=== PATIENT | male | born 1965 | race Caucasian/White ===

== ENCOUNTER 2019-04-13 11:12 | Outpatient (REF) | payer OTHER, SELFPAY ==
[2019-04-13 21:44] LABS: ALT 52 U/L (16-63); AST 21 U/L (15-37); Albumin 4.4 g/dL (3.4-5.0); Alkaline Phosphatase 52 U/L (46-116); Bilirubin, Total 0.4 mg/dL (0.2-1.0); Calculated LDL 207 mg/dL; Cholesterol 278 mg/dL (<200); HDL Cholesterol 39 mg/dL (40-60); TSH 2.28 uIU/mL (0.36-3.74); Total Protein 7.4 g/dL (6.4-8.2); Triglyceride 161 mg/dL (<150)
[2019-04-13 22:23] LABS: Bilirubin, Direct 0.07 mg/dL (0.00-0.20)
[2019-04-15 12:07] LABS: Hepatitis C Ab w Rflx HCV PCR Reactive (Negative)
[2019-04-16 14:48] LABS: HCV RNA Detection Quantitative 0 IU/mL (Undetected)
== END 2019-04-13 11:32 ==
LOC: NCHCN 11:12
PROVIDERS: PCP Internal Medicine; Visit Provider Nurse Practitioner Family
DX: B19.20 Unspecified viral hepatitis C without hepatic coma (principal); Z13.220 Encounter for screening for lipoid disorders; Z13.29 Encounter for screening for other suspected endocrine disorder
CPT/HCPCS: 80061; 80076; 86803; 84443; 87522

== ENCOUNTER 2020-02-29 15:34 | Outpatient (REF) | payer OTHER, SELFPAY ==
[2020-02-29 19:06] LABS: Abs Immature Grans 0.02 10^3/uL (0.0-0.06); Absolute Basophil Count 0.05 10^3/uL (0.0-0.2); Absolute Eosinophil Count 0.18 10^3/uL (0.0-0.7); Absolute Lymphocyte Count 2.35 10^3/uL (1.2-3.4); Absolute Monocyte Count 0.68 10^3/uL (0.1-0.8); Absolute Neutrophil Count 3.93 10^3/uL (1.2-6.7); Basophils % 0.7; Eosinophils % 2.5; HCT 47.7 % (40.0-50.0); HGB 15.8 g/dL (13.5-17.5); Immature Grans % 0.3; Lymphocytes % 32.6; MCH 32.4 pg (27.0-33.0); MCHC 33.1 % (32.0-36.0); MCV 97.7 fL (80-95); MPV 10.2 fL (8.0-11.0); Monocytes % 9.4; Neutrophils % 54.5; Nucleated RBC 0 %; Platelet Count 335 10^3/uL (130-400); RBC 4.88 10^6/uL (4.36-5.78); RDW-SD 46.6 fL; WBC 7.21 10^3/uL (4.4-10.8)
[2020-02-29 19:20] LABS: ALT 45 U/L (16-63); AST 23 U/L (15-37); Albumin 4.2 g/dL (3.4-5.0); Alkaline Phosphatase 51 U/L (46-116); Anion Gap 5.8 mmol/L (3-11); BUN 19 mg/dL (7-18); Bilirubin, Total 0.4 mg/dL (0.2-1.0); CO2 31.2 mmol/L (21.0-32.0); CREATININE 1.05 mg/dL (0.70-1.30); Calcium 9.9 mg/dL (8.5-10.1); Calculated LDL 179 mg/dL (<100); Chloride 105 mmol/L (98-107); Cholesterol 242 mg/dL (<200); Glucose 148 mg/dL (74-106); HDL Cholesterol 35 mg/dL (40-60); Potassium 4.7 mmol/L (3.5-5.1); Sodium 142 mmol/L (136-145); Total Protein 7.1 g/dL (6.4-8.2); Triglyceride 143 mg/dL (<150)
[2020-03-02 14:24] LABS: HCV RNA Qualitative Undetected (Undetected)
[2020-03-05 03:46] LABS: Patient Race White; SARS-CoV-2 RNA Undetected (Undetected); SARS-CoV-2 Specimen Source Nasopharynx
== END 2020-02-29 15:54 ==
LOC: NCHCN 15:34
PROVIDERS: PCP Internal Medicine; Visit Provider Physician Assistant
DX: B19.20 Unspecified viral hepatitis C without hepatic coma (principal); E78.5 Hyperlipidemia, unspecified; Z20.828 Contact with and (suspected) exposure to other viral communicable diseases
CPT/HCPCS: 80053; 80061; 87522; U0003; 85025

== ENCOUNTER 2024-03-11 10:27 | Outpatient (REF) | payer MEDICAID, SELFPAY ==
[2024-03-11 19:26] LABS: ALT 38 U/L (16-63); AST 22 U/L (15-37); Albumin 4.2 g/dL (3.4-5.0); Alkaline Phosphatase 58 U/L (46-116); Anion Gap 9.6 mmol/L (3-11); BUN 22 mg/dL (7-18); Bilirubin, Total 0.21 mg/dL (0.2-1.0); CO2 27.4 mmol/L (21.0-32.0); CREATININE 1.1 mg/dL (0.70-1.30); Calcium 9.6 mg/dL (8.5-10.1); Calculated LDL 103 mg/dL (<100); Chloride 106 mmol/L (98-107); Cholesterol 173 mg/dL (<200); Estimated GFR 77.81 (mL/min/1.73m2); Glucose 161 mg/dL (74-106); HDL Cholesterol 42 mg/dL (40-60); Potassium 4.9 mmol/L (3.5-5.1); Sodium 143 mmol/L (136-145); Total Protein 7.3 g/dL (6.4-8.2); Triglyceride 142 mg/dL (<150)
[2024-03-12 18:43] LABS: HIV-1/2 Ag & Ab Screen Negative (Negative)
== END 2024-03-11 10:28 | disposition home or self-care (01) ==
LOC: NCHCN 10:27
PROVIDERS: PCP Internal Medicine; Visit Provider Physician Assistant
DX: E78.5 Hyperlipidemia, unspecified (principal); Z11.4 Encounter for screening for human immunodeficiency virus [HIV]
CPT/HCPCS: 80053; 80061; 87389

== ENCOUNTER 2024-06-02 13:19 | Outpatient (REF) | payer MEDICAID, SELFPAY ==
--- OUTSIDE RECORDS SUMMARY | 2024-06-02 13:22 | XMS_ITS | Encounter Summary ---
Author Organization [facility] Address [address] [place] [address] Care Team Providers Care Back Tender Pulp Drier Name Role Phone Carie White Primary Care Provider + Encounter Details Date Type Department Care Team (Late st Contact Info) Description 04/14/2019 Lab Requisition [facility] Pathology & Laboratory Medicine - [facility] [address] [place] [address] Unknown, Provider, Social History Tobacco Use Types Packs/Day Years Used Date Smoking Tobacco: Never Assessed Sex and Gender Information Value Date Recorded Sex Assigned at Not on file Legal Sex Male 11:34 EST Gender Identity Not on file Sexual Orientation Not on file documented as of this encounter Plan of Treatment Not on file documented as of this encounter Procedures Procedure Name Priority Date/Time Associated Diagnosis Comments HCV RNA DETECT QUANT Today 04/13/2019 11:00 EST HEPATITIS C AB W REFLEX TO HCV RNA BY PCR Routine 04/13/2019 11:00 EST documented in this encounter Results * HCV RNA DETECT QUANT (04/13/2019 11:00 EST) HCV RNA Quantitative 0 Undetected IU/mL 04/16/2019 14:43 EST [facility] Comment: HCV RNA level is <15 IU/mL. ??This assay cannot accurately quantify HCV RNA below this level. Not Detected Blood VENOUS BLOOD / Unknown Non-Lab Collect / Unknown 04/13/2019 11:00 EST 04/14/2019 16:44 EST Narrative [facility] - 04/16/2019 14:43 EST The quantification range of this assay is 15 IU/mL to 100,000,000 IU/mL. ??Testing was performed on the NANDO Ampliprep/NANDO TaqMan HCV v2.0 ([employer] us Provider Unknown CHEMISTRY & BLOOD GAS ORDERA BLES Final Result Performing Organization Address [facility] Co de Phone Number [facility] [address] [place] [address] * (ABNORMAL) HEPATITIS C AB W REFLEX TO HCV RNA BY PCR (04/13/2019 11:00 EST) Hep C Antibody Reactive(A ) Negative 04/15/2019 12:04 EST [facility] Comment: Supplemental testing for HCV RNA is ordered to rule out active HCV infection. Index value ??is >=1.00 and <11.00 Blood VENOUS BLOOD / Unknown Non-Lab Collect / Unknown 04/13/2019 11:00 EST 04/14/2019 16:44 EST us Provider Unknown CHEMISTRY & BLOOD GAS ORDERA BLES Final Result Performing Organization Address [facility] de Phone Number [facility] [address] [place] [address] documented in this encounter Visit Diagnoses Not on filedocumented in this encounter Care Teams Back Tender Pulp Drier Relationship Specialty Start Date End Date Carie White PA [address] [place] [phone] PCP - General 10/24/22 documented as of this encounter
--- OUTSIDE RECORDS SUMMARY | 2024-06-02 13:22 | XMS_ITS | Encounter Summary ---
Author Organization [facility] Address [address] [place] [address] Care Team Providers Care Television News Anchor Name Role Phone Carie White Primary Care Provider + Encounter Details Date Type Department Care Team (Late st Contact Info) Description 11/19/2022 Lab Requisition [facility] Pathology & Laboratory Medicine - [facility] [address] [place] [address] Ze Yuan MD [address] [place] [phone] Encounter for screening for malignant neoplasm of colon Social History Tobacco Use Types Packs/Day Years [...] Procedure Name Priority Date/Time Associated Diagnosis Comments SURGICAL PATHOLOGY Today 11/19/2022 10 :08 EDT documented in this encounter Results * SURGICAL PATHOLOGY (11/19/2022 10:08 EDT) Note to Patient The following pathology results have been interpreted by your pathologist and may be available to you before your health provider has had the opportunity to review them. Please allow time for your provider to receive these results and explore management options, if applicable. 11/27/2022 16:41 EDT [facility] Final Diagnosis A. COLON, RIGHT, POLYP, BIOPSY: - Tubular adenoma. B. COLON, SIGMOID, POLYP, BIOPSY: - Hyperplastic polyp. C. COLON, SIGMOID, DISTAL, POLYP, BIOPSY: - Tubulovillous adenoma with high-grade dysplasia. - Background prolapse changes are present. - See comment. 11/27/2022 16:41 [facility] Diagnosis Comment Bottom Ironer slides of this case were reviewed at the gastrointestinal/[facility] intradepartmental consultation conference. (AA, , RW) 11/27/2022 16:41 [facility] Attestation There was significant resident/fellow involvement in the diagnostic evaluation of this case. By the signature below, the attending physician certifies that they have personally conducted a gross and/or microscopic examination of the described specimens and rendered or confirmed the above diagnosis. 11/27/2022 16:41 [facility] at 1641 Clinical History Screening, colon polyps 11/27/2022 16:41 [facility] Gross Description A. Received in formalin labelled with proper patient identification (initials G, M) and A. Right colon polyp is a single red-brown nodular polypoid tissue (1.1 x 0.8 x 0.8 cm). The specimen is trisected and entirely submitted in A1. B. Received in formalin labelled with proper patient identification (initials G, M) and B. Sigmoid colon polyp is a single red-purple polypoid tissue (0.6 x 0.5 x 0.4 cm). Bisected and entirely submitted in B1. C. Received in formalin labelled with proper patient identification (initials G, M) and C. Distal sigmoid polyp are 4 decker-red to dark brown granular polypoid tissues (1.1 x 0.9 x 0.7 cm to 0.4 x 0.2 x 0.2 cm). Entirely submitted as follows: BLOCK VERGARA C1- 1.1 cm polypoid tissue, trisected C2- 1.0 cm polypoid tissue, trisected C3- 0.6 cm polypoid tissue, bisected C4- 0.4 cm polypoid tissue, intact Joceline Alia 11/20/2022 8:40 11/27/2022 16:41 [facility] Resident/Fell ow: Sherry Springer MD 11/27/2022 16:41 EDT [facility] Performing Lab [facility] 11/27/2022 16:41 EDT [facility] Scanned Images 11/27/2022 16:41 EDT [facility] Tissue ENTIRE SIGMOID COLON / Unknown 11/19/2022 10:08 EDT 11/19/2022 23:44 EDT Tissue specimen (specimen) SIGMOID COLON STRUCTURE / Unknown 11/19/2022 10:08 EDT 11/19/2022 23:44 EDT Tissue specimen (specimen) SIGMOID COLON STRUCTURE / Unknown 11/19/2022 10:08 EDT 11/19/2022 23:44 EDT us Ze Yuan MD PATHOLOGY ORDERABLES Final Res ult [facility] [address] [place] [address] documented in this encounter Visit Diagnoses Diagnosis Encounter for screening for malignant neoplasm of colon Special screening for malignant neoplasms, colon documented in this encounter Care Teams Television News Anchor Relationship Specialty Start Date End Date Carie White PA [address] [place] [phone] PCP - General 10/24/22 documented as of this encounter
--- OUTSIDE RECORDS SUMMARY | 2024-06-02 13:22 | XMS_ITS | Encounter Summary ---
Author Organization [facility] Address [address] [place] [address] Care Team Providers Care Surveyor Name Role Phone Carie White Primary Care Provider + Encounter Details Date Type Department Care Team (Late st Contact Info) Description 03/12/2024 Lab Requisition [facility] Pathology & Laboratory Medicine - [facility] [address] [place], [place] [address] Outr Resulting Lab, Provider Social History Tobacco Use Types Packs/Day Years [...] Procedure Name Priority Date/Time Associated Diagnosis Comments HIV 1/2 ANTIGEN AND ANTIBODY, 4TH GENERATION Routine 03/11/2024 8:20 EDT documented in this encounter Results * HIV 1/2 ANTIGEN AND ANTIBODY, 4TH GENERATION (03/11/2024 8:20 EDT) HIV 1 and 2 Antibody/p24 Antigen, 4th Generation Negative Negative 03/12/2024 18:[address] [facility] Comment:If acute HIV-1 infec tion is suspected in a high risk patient, submit plasma specimen for HIV-1 RNA quantitation test. Blood VENOUS BLOOD / Unknown 03/11/2024 8:20 EDT 03/12/2024 16:46 EDT Narrative [facility] - 03/12/2024 18:38 EDT Fourth Generation assay performed on the Siemens Centaur XPT. us Provider Outr Resulting Lab IMMUNOLOGY AND SEROL OGY ORDERABLES Final Result [facility] [address] [place] [phone] documented in this encounter Visit Diagnoses Not on filedocumented in this encounter Care Teams Surveyor Relationship Specialty Start Date End Date Carie White PA [address] [place] [id number] PCP - General 10/24/22 documented as of this encounter
--- OUTSIDE RECORDS SUMMARY | 2024-06-02 13:22 | XMS_ITS | Encounter Summary ---
Author Organization [facility] Address [address] [place] [address] Care Team Providers Care Roll Tester Name Role Phone Carie White Primary Care Provider + Encounter Details Date Type Department Care Team (Late st Contact Info) Description 12/04/2023 Lab Requisition [facility] Pathology & Laboratory Medicine - [facility] [address] [place], [place] [address] Outr Resulting Lab, Provider Social History Tobacco [...] Procedure Name Priority Date/Time Associated Diagnosis Comments ANTI NUCLEAR AB (ALESIA), IFA Routine 12/04/2023 10:20 EDT documented in this encounter Results * ANTI NUCLEAR AB (ALESIA), IFA (12/04/2023 10:20 EDT) ALESIA Interpretation Negative Negative 2023 15:00 EDT [facility] Comment:No titer performed, ALESIA Screen is negative. Blood VENOUS BLOOD / Unknown 12/04/2023 10:20 EDT 12/05/2023 22:10 EDT Narrative [facility] - 12/08/2023 15:00 EDT Results were obtained with the [employer] NOVA Lite HEp-2 ALESIA Kit by indirect immunofluorescence. us Provider Outr Resulting Lab IMMUNOLOGY AND SEROL OGY ORDERABLES Final Result [facility] [address] [place] [address] documented in this encounter Visit Diagnoses Not on filedocumented in this encounter Care Teams Roll Tester Relationship Specialty Start Date End Date Carie White PA [address] [place] [phone] PCP - General 10/24/22 documented as of this encounter
--- OUTSIDE RECORDS SUMMARY | 2024-06-02 13:22 | XMS_ITS | Referral Summary ---
Author Organization [facility] Address [address] [place] [address] Care Team Providers Care Trapeze Artist Name Role Phone Carie White Primary Care Provider + Encounters Date Type Department Care Team Description 03/12/2024 Lab Requisition [facility] Pathology & Laboratory Medicine - [facility] [address] [place] [address] Outr Resulting Lab, Provider from Last 3 Months Social History Tobacco Use Types Packs/Day Years Used Date Smoking Tobacco: Never Assessed Sex and Gender Information Value Date Recorded Sex Assigned at Not on file Legal Sex Male 11:34 EST Gender Identity Not on file Sexual Orientation Not on file Plan of Treatment Not on file Procedures Procedure Name Priority Date/Time Associated Diagnosis Comments HIV 1/2 ANTIGEN AND ANTIBODY, 4TH GENERATION Routine 03/11/2024 8:20 EDT HCV RNA DETECT QUANT Routine 02/29/2020 9:50 EDT from Last 3 Months or Most Recently Relevant to Health Maintenance Results * HIV 1/2 ANTIGEN AND ANTIBODY, 4TH GENERATION (03/11/2024 8:20 EDT) HIV 1 and 2 Antibody/p24 Antigen, 4th Generation Negative Negative 03/12/2024 18:38 EDT [facility] Comment:If acute HIV-1 infec tion is suspected in a high risk patient, submit plasma specimen for HIV-1 RNA quantitation test. Blood VENOUS BLOOD / Unknown 03/11/2024 8:20 EDT 03/12/2024 16:46 EDT Narrative [facility] - 03/12/2024 18:38 EDT Fourth Generation assay performed on the Siemens Centaur XPT. us Provider Outr Resulting Lab IMMUNOLOGY AND SEROL OGY ORDERABLES Final Result Performing Organization Address [facility] Co de Phone Number [facility] [address] [place] [address] * HCV RNA DETECT QUANT (02/29/2020 9:50 EDT) HCV RNA Qualitative Undetected Undetected 03/02/2020 14:19 EDT [facility] Blood VENOUS BLOOD / Unknown 02/29/2020 9:50 EDT 03/01/2020 18:29 EDT Narrative [facility] - 03/02/2020 14:19 EDT The quantification range of this assay is 15 IU/mL to 100,000,000 IU/mL. ??Testing was performed on the NANDO Ampliprep/NANDO TaqMan HCV v2.0 ([employer] us Provider Outr Resulting Lab CHEMISTRY & BLOOD GA S ORDERABLES Final Result Performing Organization Address [facility] Co de Phone Number [facility] [address] [place] [address] from Last 3 Months or Most Recently Relevant to Health Maintenance Insurance [facility] Care Teams Trapeze Artist Relationship Specialty Start Date End Date Carie White PA [address] [facility] [place] [address] PCP - General 10/24/22
--- OUTSIDE RECORDS SUMMARY | 2024-06-02 13:22 | XMS_ITS | Clinical Summary ---
Author Organization [facility] Address [address] [place] [address] Care Team Providers Care Catalyst Operator Chief Name Role Phone Carie White Primary Care Provider + Encounters Date Type Department Care Team Description 03/12/2024 Lab Requisition [facility] Pathology & Laboratory Medicine - [facility] [address] [place] [address] Outr Resulting Lab, Provider from Last 3 Months Social History Tobacco Use Types Packs/Day Years Used Date Smoking Tobacco: Never Assessed Sex and Gender Information Value Date Recorded Sex Assigned at Not on file Legal Sex Male 11:34 EST Gender Identity Not on file Sexual Orientation Not on file Plan of Treatment Health Maintenance Due Date Last Done Comments Hepatitis B Vaccine (1 of 3 - 19+ 3-dose series) 1984 COVID-19 Vaccine (2023-2 5 season) 2024 Hepatitis C Screen Completed 02/29/2020, 1 06/13/2018, 04/13/2019 Procedures Procedure Name Priority Date/Time Associated Diagnosis Comments HIV 1/2 ANTIGEN AND ANTIBODY, 4TH GENERATION Routine 03/11/2024 8:20 EDT HCV RNA DETECT QUANT Routine 02/29/2020 9:50 EDT from Last 3 Months or Most Recently Relevant to Health Maintenance Results * HIV 1/2 ANTIGEN AND ANTIBODY, 4TH GENERATION (03/11/2024 8:20 EDT) HIV 1 and 2 Antibody/p24 Antigen, 4th Generation Negative Negative 03/12/2024 18:38 EDT [facility] Comment:If acute HIV-1 infec tion is suspected in a high risk patient, submit plasma specimen for HIV-1 RNA quantitation test. Blood VENOUS BLOOD / Unknown 03/11/2024 8:20 EDT 03/12/2024 16:46 EDT Narrative [facility] - 03/12/2024 18:38 EDT Fourth Generation assay performed on the Siemens Centaur XPT. us Provider Outr Resulting Lab IMMUNOLOGY AND SEROL OGY ORDERABLES Final Result Performing Organization Address City/[facility]/ZIP Co de Phone Number [facility] [address] [place] [address] * HCV RNA DETECT QUANT (02/29/2020 9:50 EDT) [facility] HCV RNA Qualitative Undetected Undetected 03/02/2020 14:19 EDT [facility] Blood VENOUS BLOOD / Unknown 02/29/2020 9:50 EDT 03/01/2020 18:29 EDT Narrative [facility] - 03/02/2020 14:19 EDT The quantification range of this assay is 15 IU/mL to 100,000,000 IU/mL. ??Testing was performed on the NANDO Ampliprep/NANDO TaqMan HCV v2.0 ([employer] us Provider Outr Resulting Lab CHEMISTRY & BLOOD GA S ORDERABLES Final Result Performing Organization Address [facility] Co de Phone Number [facility] [address] [place] [phone] from Last 3 Months or Most Recently Relevant to Health Maintenance Insurance [facility] Care Teams Catalyst Operator Chief Relationship Specialty Start Date End Date Carie White PA [address] [place] [address] [facility] - General 10/24/22
--- OUTSIDE RECORDS SUMMARY | 2024-06-02 13:22 | XMS_ITS | Encounter Summary ---
Author Organization [facility] Address [address] [place] [address] Care Team Providers Care Cupola Worker Name Role Phone Carie White Primary Care Provider + Encounter Details Date Type Department Care Team (Late st Contact Info) Description 12/04/2023 Lab Requisition [facility] Pathology & Laboratory Medicine - [address] [address] Outr Resulting Lab, Provider Social History Tobacco [...] Procedure Name Priority Date/Time Associated Diagnosis Comments RHEUMATOID FACTOR Routine 12/04/2023 10: 20 EDT documented in this encounter Results * RHEUMATOID FACTOR (12/04/2023 10:20 EDT) Rheumatoid Factor <8.6 <12.0 IU/mL 12/05/2023 22:26 EDT [facility] Blood VENOUS BLOOD / Unknown 12/04/2023 10:20 EDT 12/05/2023 22:10 EDT us Provider Outr Resulting Lab CHEMISTRY & BLOOD GA S ORDERABLES Final Result [facility] [address] [place], [place] [address] documented in this encounter Visit Diagnoses Not on filedocumented in this encounter Care Teams Cupola Worker Relationship Specialty Start Date End Date Carie White PA [address] [place] [address] PCP - General 10/24/22 documented as of this encounter
--- OUTSIDE RECORDS SUMMARY | 2024-06-02 13:22 | XMS_ITS | Encounter Summary ---
Author Organization [facility] Address [address] [place] [address] Care Team Providers Care Wine Fermenter Name Role Phone Carie White Primary Care Provider + Encounter Details Date Type Department Care Team (Late st Contact Info) Description 03/01/2020 Lab Requisition [facility] Pathology & Laboratory Medicine - [facility] [address] [place] [address] Outr Resulting Lab, Provider Social History Tobacco [...] Associated Diagnosis Comments HCV RNA DETECT QUANT Routine 02/29/2020 9:50 EDT documented in this encounter Results * HCV RNA DETECT QUANT (02/29/2020 9:50 EDT) HCV RNA Qualitative Undetected Undetected 03/02/2020 14:19 EDT [facility] Blood VENOUS BLOOD / Unknown 02/29/2020 9:50 EDT 03/01/2020 18:29 EDT Narrative [facility] - 03/02/2020 14:19 EDT The quantification range of this assay is 15 IU/mL to 100,000,000 IU/mL. ??Testing was performed on the NANDO Ampliprep/NANDO TaqMan HCV v2.0 ([employer] us Provider Outr Resulting Lab CHEMISTRY & BLOOD GA S ORDERABLES Final Result [facility] [address] [place] [address] documented in this encounter Visit Diagnoses Not on filedocumented in this encounter Care Teams Wine Fermenter Relationship Specialty Start Date End Date Carie White PA [address] [place] [phone] PCP - General 10/24/22 documented as of this encounter
[2024-06-02 20:22] LABS: ALT 32 U/L (16-63); AST 22 U/L (15-37); Albumin 4.1 g/dL (3.4-5.0); Alkaline Phosphatase 51 U/L (46-116); Anion Gap 5.6 mmol/L (3-11); BUN 21 mg/dL (7-18); CO2 28.4 mmol/L (21.0-32.0); Calcium 9.6 mg/dL (8.5-10.1); Calculated LDL 87 mg/dL (<100); Chloride 105 mmol/L (98-107); Cholesterol 149 mg/dL (<200); Glucose 144 mg/dL (74-106); HDL Cholesterol 41 mg/dL (40-60); Potassium 4.7 mmol/L (3.5-5.1); Sodium 139 mmol/L (136-145); Triglyceride 109 mg/dL (<150)
== END 2024-06-02 13:20 | disposition home or self-care (01) ==
LOC: NCHCN 13:19
PROVIDERS: PCP Internal Medicine; Visit Provider Physician Assistant
DX: E78.5 Hyperlipidemia, unspecified (principal)
CPT/HCPCS: 80053; 80061